=== PATIENT | female | born 1995 | race Caucasian/White ===

== ENCOUNTER 2018-04-05 14:32 | Emergency (ER) | payer MEDICAID ==
[~2018-04-05] VITALS: Ht 152.4 cm; Wt 60.0 kg
[2018-04-05 15:37] VITALS: BP 121/73
[2018-04-05] MEDS ORDERED: METHOCARBAMOL 750 MG TABLET ONE (15:48)
[2018-04-05] MEDS ORDERED: METHOCARBAMOL 750 MG TABLET PO ONE (16:00)
[2018-04-05] MEDS ORDERED: KETOROLAC 30 MG/1 ML IM ONE (17:00)
[2018-04-05] MEDS ORDERED: DIPHENHYDRAMINE 25 MG CAPSULE PO ONE (17:00)
[2018-04-05] MEDS ORDERED: DIPHENHYDRAMINE 25 MG CAPSULE ONE (17:04)
[2018-04-05] MEDS ORDERED: KETOROLAC 30 MG/1 ML ONE (17:04)
== END 2018-04-05 17:42 | disposition home or self-care (01) ==
LOC: ED 17:05
DX: S16.1XXA Strain of muscle, fascia and tendon at neck level, initial encounter (principal); V49.59XA Passenger injured in collision with other motor vehicles in traffic accident, initial encounter; Y93.89 Activity, other specified; Y99.8 Other external cause status; Y92.89 Other specified places as the place of occurrence of the external cause
CPT/HCPCS: 72050; 96372; 99284; J1885; Q0163